=== PATIENT | male | born 1965 | race Caucasian/White ===

== ENCOUNTER 2020-10-25 23:22 | Emergency (ER) | payer BC ==
[2020-10-26 00:30] VITALS: BP 161/94
--- NOTE | 2020-10-26 00:57 | ED Integumentary General ---
General Chief Complaint: Bite-Animal/Human/Insect Stated Complaint: BUG BITE / L ANKLE SWELLING Source: patient Exam Limitations: no limitations History of Present Illness Date Seen by Provider: Oct 26, 2020 Time Seen by Provider: 00:40 Initial Comments 54-year-old male that is otherwise healthy coming in after he was stung by a bee around 8 hours ago today on his left ankle now with ankle swelling. He states he was outside when a swarm of bees came out and felt a sting on his left ankle. Around an hour later he noticed his left ankle and foot started swelling and this is progressed. He has mild constant sharp pain in the area especially when touching it which is better with rest. He took a Zyrtec a couple hours ago which has helped somewhat. He has never had any rash, chest pain, shortness of breath, nausea, vomiting, abdominal pain, or any other concerns. He also denies any fever. Allergies and Home Medications Allergies Coded Allergies: No Known Drug Allergies (Unverified , 10/26/20) Patient Home Medication List Home Medication List Reviewed: Yes Review of Systems Review of Systems Constitutional: No fever EENTM: No blurred vision Respiratory: No cough, No short of breath Cardiovascular: No chest pain Gastrointestinal: No abdominal pain, No diarrhea, No nausea, No vomiting Genitourinary: No dysuria Musculoskeletal: No back pain Skin: No rash Psychiatric/Neurological: Denies Anxiety, Denies Depressed Endocrine: No Symptoms Reported Hematologic/Lymphatic: No Symptoms Reported All Other Systems Reviewed Negative Unless Noted: Yes Past Zvtskkz-Frpmrx-Flhvce Hx Patient Social History Tobacco Use?: No Substance use?: No Alcohol Use?: Yes Past Medical History Surgeries: No Family Medical History No Pertinent Family Hx Physical Exam Vital Signs Capillary Refill : General Appearance: WD/WN, no apparent distress HEENT: PERRL/EOMI, normal ENT inspection, pharynx normal Neck: non-tender, full range of motion, supple, normal inspection Cardiovascular: regular rate, rhythm, no edema Respiratory: chest non-tender, lungs clear, normal breath sounds, no respiratory distress, no accessory muscle use Gastrointestinal: normal bowel sounds, non tender, soft; No abnormal bowel sounds, No distended, No guarding Back: normal inspection, no CVA tenderness, no vertebral tenderness Extremities: normal range of motion, non-tender, other (Left ankle with minimal swelling and tenderness, no redness, no drainage, mall sting wound on the left lateral malleolus) Neurologic/Psychiatric: no motor/sensory deficits, alert, normal mood/affect Skin: normal color, warm/dry; No rash Lymphatic: no adenopathy Progress/Results/Core Measures Progress Progress Note : Progress Note 54-year-old male with above history coming in after stung by bee. ABCs were intact and vitals were stable on presentation. He does have a small sting to his left lateral ankle with some swelling around that area. He has no other systemic symptoms that would be concerning for anaphylaxis including no shortness of breath, vomiting, abdominal pain, or rash anywhere else. This does appear to be a very localized reaction. He took Zyrtec which I agree with. We'll give him a shot of Decadron here and I will recommend that he continue to take Zyrtec daily. Given how rapidly this swelling occurred after the bee sting I do not believe this is a DVT or infection. I discussed with him what to look out for including any new shortness of breath, vomiting, fever, worsening of the swelling, or any other concerns he should come back to the emergency department. He was then discharged home in stable condition. Departure Impression Primary Impression: Bee sting Qualified Codes: T63.441A - Toxic effect of venom of bees, accidental (unintentional), initial encounter Disposition: 01 HOME, SELF-CARE Condition: Stable Departure-Patient Inst. Decision time for Depature: 00:56 Referrals: NO,LOCAL PHYSICIAN (PCP/Family) Primary Care Physician Patient Instructions: Insect Bites and Stings (DC) Add. Discharge Instructions: You were seen in the emergency department for a bee sting. You were given a shot of a steroid. He should continue to take Zyrtec daily. If you have any fever, swelling or redness that is going up your leg further, shortness of breath, vomiting, or any concerns then please come back to the emergency department. All discharge instructions reviewed with patient and/or family. Voiced understanding. Work/School Note: Local Medical Staff Listing TJ MOORE MD Oct 26, 2020 00:57
== END 2020-10-26 01:26 | disposition home or self-care (01) ==
LOC: EDUNIT# 23:22 → ER 23:25
DX: T63.441A Toxic effect of venom of bees, accidental (unintentional), initial encounter (principal)
CPT/HCPCS: 96372; 99284